=== PATIENT | female | born 1945 | race Caucasian/White ===

== ENCOUNTER → 2017-06-18 | Outpatient (CLI) | payer MEDICARE, BC ==
[2017-06-18 08:28] LABS: Blood Urea Nitrogen 16 mg/dL (7-17); Non-African American GFR(MDRD) >60 (>60 ml/min/1.73 sqM)
--- NOTE | 2017-06-18 11:47 | CT ---
EXAMINATION TYPE: CT chest w con DATE OF EXAM: 06/18/2017 COMPARISON: NONE HISTORY: Outside abnormal x-ray CT DLP: 189.9 mGycm. Automated Exposure Control for Dose Reduction was Utilized. TECHNIQUE: CT scan of the thorax is performed following with IV Contrast, patient injected with 100 mL of Omnipaque 300. FINDINGS: LUNGS: There is peripheral reticulation and fibrosis with distortion bilaterally involving upper and lower lungs most prominent in the bases. There is some honeycombing in the bases identified. There is suspicious spiculated nodule measuring 2.0 x 1.9 cm on axial image 24 almost abutting pleura likely in the inferior lateral aspect of the right upper lobe. No pleural effusion or pneumothorax is seen b ilaterally. Tracheobronchial tree is patent. MEDIASTINUM: There are no greater than 1 cm hilar or mediastinal lymph nodes. There are prominent bu t subcentimeter prevascular, AP window, and pericarinal lymph nodes, for reference largest measures 1 1 x 7 mm on axial image 18. No pericardial effusion is seen. Heart size is mildly enlarged. There is moderate left atrial dilatation. There is mild left ventricular dilatation. There is three-vessel coronary artery calcification which is noted marker for coronary artery disease. There is mild to mod erate calcified plaque in the aortic arch and descending aorta. OTHER: No adrenal masses are noted. Moderate multilevel spurring in the mid to lower thoracic spine is seen. IMPRESSION: Fairly moderate to severe bilateral interstitial fibrosis most prominent in bases, correl ate for IPF. There is suspicious spiculated 2.0 cm lesion laterally right midlung worrisome for neopl asm. Consider PET/CT and/or CT guided biopsy for further workup.
== END | disposition home or self-care (01) ==
LOC: RADCTMAIN 07:55
PROVIDERS: ATTEND Family Medicine
DX: J84.10 Pulmonary fibrosis, unspecified (principal)
CPT/HCPCS: 82565; 84520; 71260; 36415; Q9967

== ENCOUNTER → 2017-08-01 | Outpatient (CLI) | payer MEDICARE ==
--- NOTE | 2017-08-06 11:03 | PE ---
EXAMINATION TYPE: PET CT fusion skull to thigh DATE OF EXAM: 08/01/2017 COMPARISON: CT chest 06/18/2017 Prior PET/CT: None HISTORY: Solitary pulmonary nodule TECHNIQUE: Following the intravenous administration of 14 mCi of F-18 FDG, whole body images are per formed from the skull base to the midthigh. Images are reviewed on the computer in the coronal, axia l, and sagittal planes. Reconstructed rotating images are created on independent workstation and rev iewed on the computer. A localization and attenuation correction CT is performed in conjunction wit h the PET scan. DLP: 302.61 mGycm SCAN: Initial Blood glucose: 88 mg/dL Mediastinal average SUV: 1.76 Liver average SUV: 2.44 FINDINGS: NECK: No abnormal uptake THORAX: There may be some inflammatory change left shoulder. There is marked increased radiotracer accumulation at the mass within the periphery of the right midl bassam. PET image 73. This has an SUV value of 12.7 compatible with neoplasm. No suspicious mediastinal uptake is evident. ABDOMEN: No abnormal uptake PELVIS: No abnormal uptake OSSEOUS STRUCTURES: No abnormal uptake LOCALIZATION CT: Right lateral lung mass measures 2.2 x 3.0 cm on mediastinal windows. There are shot ty lymphadenopathy within the mediastinum. The ascending thoracic aorta at the level of the main pulm onary artery is 3.3 cm. The main pulmonary artery at the bifurcation is 2.3 cm. Coronary artery calci fication is present. Hiatal hernia is present. There is a 0.6 cm mid left renal stone without obstruc tion. Diverticular changes are through the sigmoid colon. COMPARISON: Lung mass has increased from 1.8 x 2.6 cm to the current 2.2 x 3.0 cm. The mediastinal ly mph node in the pretracheal space does not appear as prominent on the current exam. IMPRESSION: 1. Solitary mass with increased radiotracer compatible with neoplasm periphery right lung. 2. Metastatic disease is not identified at this time.
== END | disposition home or self-care (01) ==
LOC: RADPETMAIN 13:03
PROVIDERS: ATTEND Internal Medicine
DX: R91.8 Other nonspecific abnormal finding of lung field (principal)
CPT/HCPCS: 78815; A9552

== ENCOUNTER 2017-08-04 07:49 | Day surgery (SDC) | payer MEDICARE ==
[2017-08-04 08:29] VITALS: TEMP 97.9
[2017-08-04 08:45] LABS: Mean Platelet Volume 6.1; Platelet Count 350 k/uL (150-450)
[2017-08-04 08:53] LABS: Partial Thromboplastin Time 23.4 sec (22.0-30.0); Prothrombin Time 9.8 sec (9.0-12.0)
[2017-08-04] MEDS ORDERED: HYDROmorphone 4 MG/ML 1 ML SYRINGE IVP STA (09:00)
[2017-08-04] MEDS ORDERED: HYDROmorphone 2 MG/ML 1 ML SYRINGE IVP STA (10:13)
--- NOTE | 2017-08-04 10:15 | CT ---
EXAMINATION TYPE: CT guided lung biopsy. DATE OF EXAM: 08/04/2017 COMPARISON: 08/01/2017 and 06/18/2017 HISTORY: Right lung mass with request for percutaneous tissue sampling. CT DLP: 1447 mGycm The procedure is discussed with the patient, the risks, complications, benefits and alternatives, wer e discussed and any questions were answered. Informed consent was obtained. Preprocedural timeout wa s performed. The patient is placed prone on the CT table, prepped and draped in the usual sterile fas hion. The safest approach was assessed with preprocedural imaging. 10 cc of lidocaine without epinephrine w as utilized to anesthetize the subcutaneous tissues and pleural surface. All elements of maximal bar rier technique were utilized. A 17/18 gauge coaxial Temno biopsy system was utilized to obtain 6 samp les. The patient remained stable throughout the procedure with a small postprocedural pneumothorax an d peritumoral hemorrhage. Monitoring was performed by the IR nursing staff. IMPRESSION: Successful CT guided fine needle aspiration of a right lobe lung mass
[2017-08-04 11:17] VITALS: RESP 18
--- NOTE | 2017-08-04 11:44 | XR ---
EXAMINATION TYPE: XR chest 1V portable DATE OF EXAM: 08/04/2017 COMPARISON: NONE HISTORY: Status post right-sided lung biopsy. TECHNIQUE: Frontal and lateral views of the chest are obtained. FINDINGS: There is right-sided pneumothorax identified estimated at less than 10%. Poorly visualized right mid lung zone pleural-based mass. Increased density right lateral lung base. Left lung is clear. Heart size is stable. Mediastinal structures are stable and grossly unremarkable. No evidence for hilar prominence. Degenerative changes dorsal spine. IMPRESSION: 1. Less than 10% right-sided pneumothorax in a patient who is status post lung biopsy. Continued foll ow-up advised.
--- NOTE | 2017-08-04 12:34 | XR ---
EXAMINATION TYPE: XR chest 1V portable DATE OF EXAM: 08/04/2017 COMPARISON: 08/04/2017 HISTORY: Status post lung biopsy. TECHNIQUE: Single frontal view of the chest is obtained. FINDINGS: The small right-sided pneumothorax of less than 10% appears to be smaller than on the prio r exam with approximately 3.8 mm of greatest pleural separation. Surrounding postbiopsy hemorrhage is superimposed upon chronic interstitial lung changes and emphysema. Cardiomediastinal silhouette is w ithin normal limits. Osseous structures appear intact. IMPRESSION: Small right-sided pneumothorax appears to be decreasing in size since the prior of 018 11:24 AM, again less than 10%. Continued patient monitoring and precautionary additional chest ra diograph will be performed after further monitoring.
[2017-08-04 13:13] VITALS: BP 149/64
[2017-08-04 14:20] VITALS: PULSE 93
--- NOTE | 2017-08-04 14:54 | XR ---
EXAMINATION TYPE: XR chest 1V portable DATE OF EXAM: 08/04/2017 HISTORY: Follow-up pneumothorax COMPARISON: Same day TECHNIQUE: Single view of the chest is submitted. FINDINGS: Right-sided pneumothorax is again present and appears to have enlarged particularly within the right apical region. Pleural reflection is approximately 5 mm from the chest wall. Right-sided pulmonary ma sses unchanged. The heart is stable. Hilar and mediastinal structures are within normal limits. Degenerative changes are seen of the dorsal spine. IMPRESSION: 1. Slight interval increase in right-sided pneumothorax estimated at approximately 10%. Continued fo llow-up is advised.
--- NOTE | 2017-08-05 12:34 | XR ---
EXAMINATION TYPE: XR chest 2V DATE OF EXAM: 08/05/2017 COMPARISON: 08/04/2017 HISTORY: Follow-up after lung biopsy for pneumothorax. TECHNIQUE: Frontal and lateral views of the chest are obtained. FINDINGS: There is a resolving right apical pneumothorax of less than 5%, decreased from the prior e xams. Right midlung density represents the underlying known pulmonary nodule. Interseptal lobular thi ckening and pulmonary hyperinflation are seen on the basis of underlying COPD. Right subcutaneous emp hysema is present overlying the scapula. Cardiomediastinal silhouette is within normal limits. IMPRESSION: Improving post biopsy right small pneumothorax of less than 5%.
== END 2017-08-04 14:15 | disposition home or self-care (01) ==
LOC: RADPROMAIN 07:49
PROVIDERS: ATTEND Internal Medicine
DX: C34.91 Malignant neoplasm of unspecified part of right bronchus or lung (principal); J84.10 Pulmonary fibrosis, unspecified; J95.811 Postprocedural pneumothorax
CPT/HCPCS: 88305; 85049; 85610; 85730; 96374; 71045; 32405; 77012; J1170 ×2; 71046

== ENCOUNTER → 2017-08-18 | Outpatient (CLI) | payer MEDICARE ==
[2017-08-18 12:57] LABS: Blood Urea Nitrogen 19 mg/dL (7-17)
--- NOTE | 2017-08-18 14:32 | CT ---
EXAMINATION TYPE: CT angio chest DATE OF EXAM: 08/18/2017 COMPARISON: NONE HISTORY: Lung cancer CT DLP: 199.7 mGycm. Automated Exposure Control for Dose Reduction was Utilized. CONTRAST: CTA scan of the thorax is performed with IV Contrast, patient injected with 100 mL of Omnipaque 350, pulmonary embolism protocol. MIP Images are created on CT scanner and reviewed. FINDINGS: LUNGS: There are moderate background centrilobular and paraseptal emphysematous changes. Subpleural r eticulation and honeycombing is present representing interstitial pulmonary fibrosis. Retracting the fissure within the inferior right upper lobe and crossing the fissure there is redemonstration of a 2 .7 x 2.6 cm pulmonary nodule projecting size criteria for a pulmonary mass with a spiculated morpholo gy abutting the pleural surface. There is adjacent pleural thickening. The previously seen post proce dural pneumothorax has reabsorbed in the interim. No pleural effusion or new pulmonary mass. Lingular atelectasis is incidentally noted on series 5 image 86. The tracheobronchial tree is patent. MEDIASTINUM: There is satisfactory enhancement of the pulmonary artery and its branches, there is no CT evidence for pulmonary embolism. There are no greater than 1 cm hilar or mediastinal lymph nodes. The largest pretracheal lymph node measures 8 mm in short axis. The largest right hilar lymph node a lso measures 8 mm in short axis. No cardiomegaly or pericardial effusion is seen. OTHER: There is a moderate hiatal hernia. Mild multilevel degenerative changes of the thoracic. IMPRESSION: 1. No evidence of pulmonary embolus. 2. Interval enlargement of the now 2.7 x 2.6 cm pulmonary nodule predominantly within the right upper lobe, retracting and crossing the fissure with adjacent pleural reaction. 3. No mediastinal adenopathy or new pulmonary nodules. 4. Interstitial pulmonary fibrosis and moderate background pulmonary emphysema.
== END | disposition home or self-care (01) ==
LOC: RADCTMAIN 12:00
PROVIDERS: ATTEND Internal Medicine
DX: J43.9 Emphysema, unspecified (principal); R91.1 Solitary pulmonary nodule; J84.10 Pulmonary fibrosis, unspecified
CPT/HCPCS: 82565; 84520; 71275; 36415; Q9967